=== PATIENT | female | born 1980 | race Hispanic/Latino ===

== ENCOUNTER 2017-03-05 21:02 | Emergency (ER) | payer OTHER ==
[2017-03-05 21:17] VITALS: BP 118/69; PULSE 68; RESP 16; TEMP 98.2; O2SAT 100
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
--- NOTE | 2017-03-06 09:32 | RAD ---
PROCEDURE: Right Hand Radiographs. HISTORY: 3rd metacarpal Pain. No history of recent/ related trauma provided COMPARISON: None. FINDINGS: BONES: Normal. No fracture. JOINTS: Normal. No osteoarthritic changes. SOFT TISSUES: Normal. OTHER FINDINGS: None. IMPRESSION: No acute findings related to/accounting for the clinical presentation.
== END 2017-03-05 22:54 | disposition home or self-care (01) ==
LOC: EDBD 21:02 → H.ER 21:02
DX: S60.221A Contusion of right hand, initial encounter (principal); W22.8XXA Striking against or struck by other objects, initial encounter; Y92.89 Other specified places as the place of occurrence of the external cause